=== PATIENT | female | born 1965 | race Two or more races ===

== ENCOUNTER 2021-04-23 17:44 | Emergency (ER) | payer MEDICAID, OTHER ==
[~2021-04-23] VITALS: Ht 160 cm; Wt 72.6 kg
[2021-04-23 21:51] VITALS: BP 124/72
[2021-04-23] MEDS ORDERED: IBUPROFEN 800 MG TAB PO ONE ×2 (21:57→22:00)
== END 2021-04-23 22:02 | disposition home or self-care (01) ==
LOC: ER 17:44
DX: R51.9 Headache, unspecified (principal); I10 Essential (primary) hypertension; E11.9 Type 2 diabetes mellitus without complications; V49.49XA Driver injured in collision with other motor vehicles in traffic accident, initial encounter; Y93.89 Activity, other specified; Y92.488 Other paved roadways as the place of occurrence of the external cause; Y99.8 Other external cause status
CPT/HCPCS: 70450; 72125